=== PATIENT | male | born 1980 | race Caucasian/White ===

== ENCOUNTER → 2017-08-18 | Outpatient (CLI) | payer OTHER ==
[2017-08-18 12:06] LABS: HEMOGLOBIN 17.3 g/dL (13.7-18.0); WHITE BLOOD COUNT 13.9 x10^3/uL (3.4-10)
[2017-08-18 12:27] LABS: BLOOD UREA NITROGEN 8 mg/dL (7-18)
[2017-08-18 12:41] LABS: ASPARTATE AMINO TRANSFERASE 19 U/L (15-37)
== END | disposition home or self-care (01) ==
LOC: LAB 11:47
PROVIDERS: ATTEND Family Medicine
DX: I10 Essential (primary) hypertension (principal); E78.5 Hyperlipidemia, unspecified; M10.9 Gout, unspecified; M25.562 Pain in left knee
CPT/HCPCS: 36415; 80053; 80061; 83036; 84550; 85025